=== PATIENT | female | born 1940 | race Caucasian/White ===

== ENCOUNTER 2025-03-13 22:00 | Emergency (ER) | payer BC, OTHER ==
[~2025-03-13] VITALS: Ht 160 cm; Wt 45.4 kg
[2025-03-13 22:07] VITALS: BP 159/79; TEMP 98.4; O2SAT 98
[2025-03-13] MEDS ORDERED: KETOROLAC TROMETHAMINE 15 MG/ML VIAL ONE (22:54)
[2025-03-13] MEDS: KETOROLAC TROMETHAMINE 15 MG/ML VIAL IV ONE (23:04)
== END 2025-03-14 02:22 | disposition left against medical advice (07) ==
LOC: ER 22:02
DX: S32.592A Other specified fracture of left pubis, initial encounter for closed fracture (principal); R00.2 Palpitations; Z88.0 Allergy status to penicillin; Z88.2 Allergy status to sulfonamides; Z88.5 Allergy status to narcotic agent; W01.0XXA Fall on same level from slipping, tripping and stumbling without subsequent striking against object, initial encounter; Y93.89 Activity, other specified; Y92.89 Other specified places as the place of occurrence of the external cause; Y99.8 Other external cause status
CPT/HCPCS: 71045-TC; 72192-TC; J1885